=== PATIENT | female | born 1995 | race Caucasian/White ===

== ENCOUNTER 2018-11-09 11:35 | Outpatient (CLI) | payer OTHER ==
[2018-11-09] MEDS ORDERED: TERBUTALINE 1 MG/ML INJ SC PRN (16:00)
[2018-11-09] MEDS ORDERED: LACTATED RINGER'S 1,000 ML IV ONE (16:00)
--- NOTE | 2018-11-20 12:02 | PN ---
Triage Information Date/Time Reason for visit: Abd/pelvic pain Weeks of Gestation 31-week and 1 day /Para G1 Diabetes: none Hypertention: none Objective Heart Rate: 140's Contractions: None Results/Medications Imaging Results FINDINGS: The liver is normal in echogenicity and measures 15.0 cm. No focal hepatic masses are seen. The gallbladder is physiologically distended. There is no ev idence of gallstones, gallbladder wall thickening, or pericholecystic fluid. The intra and extrahepatic bile ducts are normal in caliber. The common bile duct measures 3.5 mm. Midline images demonstrate the pancreas to be normal in echogenicity without obvious inflammatory change. The tail is suboptimally seen. Survey views of the right kidney demonstrate mild hydronephrosis. No obstructing renal calculus is visualized and this is likely secondary to .. The right kidney measures 9.5 cm. IMPRESSION: 1. No evidence of cholelithiasis or acute cholecystitis. 2. Mild right hydronephrosis likely secondary to . No obstructing calculi seen Disposition: Discharge Assessment/Plan 22 years old 1 with single intrauterine at 31 weeks and 1 day complaining of abdominal pain. she states good movement. She denies nausea, vomiting, shortness of breath, chest pain, headache, visual changes, vaginal bleeding or LOF. -FHR: No sign of metabolic acidosis- Category I -Contractions: None -Ultrasound performed: MARGO 16.3, abdominal ultrasound performed as noted above -Symptoms and sign of labor, preeclampsia, kick count discussed with patient, she voiced understanding. All of her questions answered. -Patient was discharged home in stable condition with the appropriate discharge instructions provided. I would like patient to have close follow-up with her primary physician or outpatient clinic in 1-2 days or return to triage for worsening symptoms or any other urgent concerns. KIT PRYOR Nov 20, 2018 12:02
== END 2018-11-09 18:40 | disposition home or self-care (01) ==
LOC: OBT 11:35 → L-D 11:37 → OBT 18:40
PROVIDERS: ATTEND Obstetrics & Gynecology
DX: O26.893 Other specified pregnancy related conditions, third trimester (principal); Z3A.31 31 weeks gestation of pregnancy; R10.2 Pelvic and perineal pain
CPT/HCPCS: 76705; 76815; 76817; 81001; 82731; 87086; 96360; 96372; J3105; J7120; Z7500; G0463

== ENCOUNTER 2018-12-31 08:41 | Outpatient (CLI) | payer OTHER ==
[~2018-12-31] VITALS: Ht 149.9 cm; Wt 63.4 kg
[~2018-12-31 08:41] MED LIST: PNV11TAB PO
[2018-12-31 08:57] VITALS: BP 133/88; Ht 149.9 cm; Wt 63.4 kg
[2018-12-31] MEDS ORDERED: PREN1TAB71 PO (08:57)
--- NOTE | 2018-12-31 12:19 | PN ---
Triage Information Date/Time Reason for visit: Complaining of leaking fluid Weeks of Gestation Patient is a 23-year-old 1 para 0 at 39 weeks and 2 days of gestation with estimated date of delivery January 05, 2019 Patient presents with chief complaint of leaking fluid, she reports positive movement, denies any vaginal bleeding or uterine contractions /Para 1 para 0 Diabetes: none Hypertention: none Objective Vital Signs Date Temp Pulse Resp B/P (MAP) Pulse Ox O2 O2 Flow FiO2 Time Delivery Rate 12/31/18 97.9 133/88 08:57 (103) Heart Rate: 140's Heart Rate Comments heart rate tracing category 1 Contractions: None Exam Cervix closed per nurse Results/Medications Results 24 hrs Laboratory Tests Test 12/31/18 09:00 Membranes Rupture NEGATIVE Imaging Results PROCEDURE: US OB biophysical profile. CLINICAL INDICATION: decreased movements, retractions TECHNIQUE: Multiple sonographic images of the pelvis were obtained. The images were reviewed on a PACS workstation. COMPARISON: No prior studies are available for comparison. FINDINGS: There is a single live intrauterine gestation. Cardiac activity is present with 140 beats per minute. There is a vertex presentation. The placenta is anterior. There is no evidence of placental abruption. MARGO = 11 cm. Biophysical profile: movement 2/2 tone 2/2. breathing 2/2 MARGO 2/2 Total 03/30 RPTAT: AA . IMPRESSION: Normal biophysical profile. . .Koby Wilde MD, MD Date Time Electronically viewed and signed by .Koby Wilde MD, MD on 12/31/2018 09:37 .S/ CC: JOCELYN BETANCUR MD [phone] PROCEDURE: ULTRASOUND OBSTETRICAL CLINICAL INDICATION: 23-year-old female for size and date determination. TECHNIQUE: Multiple sonographic images of the pelvis were obtained. The images were reviewed on a PACS workstation. COMPARISON: Ultrasound biophysical profile currently. FINDINGS: The cervix is not well visualized. There is a single viable intrauterine gestation. Cardiac activity is present with 152 beats per minute. There is a vertex presentation. Measurements were made in order to determine age. The results are as follows: BPD = 8.69 cm, HC = 31.76 cm, AC = 33.57 cm, FL = 7.10 cm. This yields and estimated gestational age of approximately 36 weeks 1 day. The estimated date of delivery is January 27, 2019. The EFW = 3017 +/- 452 g (6 pounds 10 ounces). The GP is 14%. The placenta is anterior grade II. There is no evidence for an abruption or placenta previa. IMPRESSION: 1. Single viable intrauterine gestation of approximately 36 weeks 1 day with vertex presentation. The estimated date of delivery is January 27, 2019. 2. The estimated weight is 3017 +/- 452 g (6 pounds 10 ounces). The GP is 14%. .Nino Brannon MD, MD Date Time Electronically viewed and signed by .Nino Brannon MD, MD on 12/31/2018 10:53 .M/ CC: JOCELYN BETANCUR MD [phone] Disposition: Discharge Assessment/Plan Patient's membranes not ruptured Fetus small for gestational age measuring at 14 percentile Patient counseled to return in 48 hours for repeat NST and BPP kick count instructions were given Labor precautions were given Patient counseled to follow-up with her own MEDIA MANAGER in 1 to 2 days RICA AMAYA MD December 31, 2018 12:19
[2018-12-31] MEDS ORDERED: SOD CHLORIDE 0.9% 1,000 ML IV SCH (13:00)
[2018-12-31] MEDS ORDERED: CEFTRIAXONE 2 GM/50 ML (PMX) 50 ML IVPB ONE (13:00)
--- NOTE | 2018-12-31 14:47 | TRIAGE ---
OB Triage Datetime Report Generated by CPN: 12/31/2018 14:47 Datetime: 12/31/2018 11:01 Stage of : OB Triage Labor Evaluation Frequency: IRREGULAR Monitor Mode: External Duration (sec)2399: 30 Pattern: Normal: <= 5 Contractions in 10 Minutes Resting Tone [place]: Relaxed Heart Rate FHR Baseline Rate: 135 Monitor Mode: External US Variability: Moderate 6-25 bpm Accelerations: 15X15 Decelerations: None Category: Category I Pain Presence: None/Denies Pain Type: N/A Datetime: 12/31/2018 10:01 Stage of : OB Triage Labor Evaluation Frequency: 1 Monitor Mode: External Duration (sec)2399: 60 Pattern: Normal: <= 5 Contractions in 10 Minutes Resting [place]one [place]: Relaxed Heart Rate FHR Baseline Rate: 135 Monitor Mode: External US Variability: Moderate 6-25 bpm Accelerations: 15X15 Decelerations: None Category: Category I Pain Presence: None/Denies Pain Type: N/A Datetime: 12/31/2018 09:30 Stage of : OB Triage Labor Evaluation Frequency: 0 Monitor Mode: External Pattern: Normal: <= 5 Contractions in 10 Minutes Resting [place]one [place]: Relaxed Heart Rate FHR Baseline Rate: 145 Monitor Mode: External US Variability: Moderate 6-25 bpm Accelerations: 15X15 Decelerations: None Category: Category I Comments: BACK ON MONITOR Pain Presence: None/Denies Pain Type: N/A Datetime: 12/31/2018 09:17 Comments: US AT BEDSIDE Datetime: 12/31/2018 09:04 Stage of : OB Triage Assessment Type: Triage Maternal Assessment Level of Consciousness: Fully Conscious DTR's/Clonus: DTRs 2+; No Clonus Headache: Denies Blurred Vision: No Respiratory Effort: Unlabored; Regular Rhythm; Equal Expansion Breath Sounds, Left: Clear and Equal Breath Sounds, Right: Clear and Equal Nausea/Vomiting: Denies RUQ Epigastric Pain: Denies Lower Extremities Edema: None Degree: None Degree: None Facial Edema: None Temperature Route: Oral Fall Risk Assessment History of Falling: (0) No Secondary Diagnosis: (0) No Ambulatory Aid: (0) Bedrest/Nurse Assist IV Therapy: (0) No Gait: (0) Normal/Bedrest/Immobile Mental Status: (0) Oriented to Own Ability Fall Score: 0 Fall Risk Score Definition: No Risk: No action required Monitor Mode: External (Annotations: INITIAL PLACEMENT ) Monitor Mode: External US (Annotations: INITIAL PLACEMENT ) Pain Assessment Pain Scale: 0 Pain Presence: None/Denies Pain Type: N/A Datetime: 12/31/2018 09:01 Time of Arrival: 12/31/2018 08:35 EGA: 38.4 Arrived By: Ambulatory Arrived From: Home Chief Complaint: LEAKING Movement: Present Contractions: Denies/Absent Rupture of Membranes: Denies Vaginal Bleeding: None Vaginal Discharge: Denies Recent Sexual Intercouse: Denies Patient Complaints: Other Time Provider Notified: 12/31/2018 11:43 Provider Notified: DR. AMAYA Initial Plan: EFM CALL MD ROM + Datetime: 12/31/2018 08:50 Vaginal Exam Dilatation (cms): 0.0 Effacement (%): 50 Station: -3 Exam By: Nighat Miranda Datetime: 11/09/2018 17:14 Stage of : OB Triage Labor Evaluation Frequency: 0 Monitor Mode: External Pattern: Normal: <= 5 Contractions in 10 Minutes Resting [place]one [place]: Relaxed Heart Rate FHR Baseline Rate: 155 Monitor Mode: External US Variability: Moderate 6-25 bpm Accelerations: 15X15 Decelerations: None Category: Category I Pain Presence: None/Denies Pain Type: N/A Datetime: 11/09/2018 14:26 Stage of : OB Triage Labor Evaluation Frequency: IRREGULAR Duration (sec)2399: 30 Pattern: Normal: <= 5 Contractions in 10 Minutes Heart Rate FHR Baseline Rate: 145 Monitor Mode: External US Variability: Moderate 6-25 bpm Accelerations: 15X15 Decelerations: None Category: Category I Pain Assessment Pain Scale: 6 Pain Presence: Intermittent Pain Type: Ache Pain Location: Abdomen Pain Goal: 0 Pain Relief Measures: Comfort Measures Datetime: 11/09/2018 12:26 Stage of : OB Triage Labor Evaluation Frequency: x1 Duration (sec)2399: 30 Pattern: Normal: <= 5 Contractions in 10 Minutes Resting [place]one [place]: Relaxed Heart Rate FHR Baseline Rate: 145 Monitor Mode: External US Variability: Moderate 6-25 bpm Accelerations: 15X15 Decelerations: None Category: Category I Datetime: 11/09/2018 12:03 Time of Arrival: 11/09/2018 11:26 EGA: 31.1 Arrived By: Ambulatory Arrived From: Home Chief Complaint: abd pain, radiating to back Movement: Present Contractions: Occasional Rupture of Membranes: Denies Vaginal Bleeding: None Vaginal Discharge: Denies Recent Sexual Intercouse: Denies Abdominal Trauma: Not Applicable Patient Complaints: Other Time Provider Notified: 11/09/2018 18:30 Provider Notified: DR. PRYOR Initial Plan: efm, call md Datetime: 11/09/2018 11:45 Assessment Type: Triage Maternal Assessment Level of Consciousness: Fully Conscious DTR's/Clonus: DTRs 2+; No Clonus Headache: Denies Blurred Vision: No Respiratory Effort: Unlabored; Regular Rhythm; Equal Expansion Breath Sounds, Left: Clear and Equal Breath Sounds, Right: Clear and Equal Nausea/Vomiting: Denies RUQ Epigastric Pain: Denies Lower Extremities Edema: None Degree: None Upper Extremities Edema: None Degree: None Facial Edema: None Fall Risk Assessment History of Falling: (0) No Secondary Diagnosis: (0) No Ambulatory Aid: (0) Bedrest/Nurse Assist IV Therapy: (0) No Gait: (0) Normal/Bedrest/Immobile Mental Status: (0) Oriented to Own Ability Fall Score: 0 Fall Risk Score Definition: No Risk: No action required
== END 2018-12-31 14:50 | disposition home or self-care (01) ==
LOC: OBT 08:41 → L-D 08:42 → OBT 14:50
PROVIDERS: ATTEND Obstetrics & Gynecology
DX: O36.5930 Maternal care for other known or suspected poor fetal growth, third trimester, not applicable or unspecified (principal); Z3A.39 39 weeks gestation of pregnancy
CPT/HCPCS: 76815; 76818; 80053; 81001; 84112; 85025; 87086; 96360; 96361; J0696; J7030; Z7500; G0463

== ENCOUNTER 2019-01-02 11:02 | Inpatient (IN) | payer MEDICAID ==
[~2019-01-02] VITALS: Ht 149.9 cm; Wt 63.3 kg
[~2019-01-02 11:02] MED LIST changes: +PREN1TAB71 PO
[2019-01-02 11:11] VITALS: Ht 149.9 cm; Wt 63.3 kg
--- NOTE | 2019-01-02 13:44 | PREOPHP ---
DATE OF ADMISSION: 01/02/2019 HISTORY OF PRESENT ILLNESS: Ms. Jovana Mills is a 23-year-old, 1, para 0, EDC 9, intrauterine at 39 weeks and 4 days gestational age, presented to triage complaining of contractions with decreased movement. She denies any vaginal bleeding or discharge. Her [facility] care took place with Dr. Velasquez. PAST MEDICAL HISTORY: None. MEDICATIONS: vitamins. PAST SURGICAL HISTORY: None. OBSTETRIC HISTORY: Primigravida. GYNECOLOGIC HISTORY: 10, regular 3 to 4 days. Denies any sexually transmitted diseases, sexually ac tive with 1 partner. SOCIAL HISTORY: Denies any smoking, drugs or alcohol. FAMILY HISTORY: None. REVIEW OF SYSTEMS: All within normal except history of present illness. PHYSICAL EXAMINATION: HEENT: Within normal. LUNGS: CTA bilateral. CARDIOVASCULAR: S1, S2, regular rhythm. ABDOMEN: Gravid, nontender. Negative CVA bilateral. EXTREMITIES: Negative. No calf tenderness. PELVIC: Vaginal exam 1, 50, -3. heart tracing category 1. [place]: Regular contractions. ASSESSMENT: Intrauterine at term, in early labor, decreased movement and admit. PLAN: Pitocin augmentation. Dictated By: JOCELYN HAWTHORNE/SHALOM Conf#: [id number] DID#: [id number]
[2019-01-02 14:32] VITALS: BP 132/89; PULSE 95; RESP 18
[2019-01-02] MEDS ORDERED: AMPICILLIN 2 GM/NS (PMX) 100 ML IV ONE (15:30)
[2019-01-02] MEDS ORDERED: METHYLERGONOVINE 0.2 MG INJ IM PRN (15:30)
[2019-01-02] MEDS ORDERED: CARBOPROST 250 MCG INJ IM PRN (15:30)
[2019-01-02] MEDS ORDERED: LIDOCAINE 1% (MPF) 30 ML INJ INJ PRN (15:30)
[2019-01-02] MEDS ORDERED: OXYTOCIN 30 UNITS/LR 500 ML IV PRN (15:30)
[2019-01-02] MEDS ORDERED: BUTORPHANOL 2 MG INJ IV PRN (15:30)
[2019-01-02] MEDS ORDERED: MISOPROSTOL 200 MCG TAB PR PRN (15:30)
[2019-01-02] MEDS ORDERED: OXYTOCIN 30 UNITS/LR 500 ML IV SCH ×2 (15:30)
[2019-01-02] MEDS: LACTATED RINGER'S 1,000 ML IV SCH ×2 (15:49→19:15)
[2019-01-02] MEDS: OXYTOCIN 30 UNITS/LR 500 ML IV SCH (16:15)
[2019-01-02] MEDS ORDERED: AMPICILLIN 1 GM/NS (PMX) 50 ML IV SCH (18:00)
[2019-01-02] MEDS ORDERED: PREN-99 PO (21:25)
[2019-01-02] MEDS ORDERED: FER325 PO (21:25)
[2019-01-02] MEDS: DEXTROSE 5%-LR 1,000 ML IV SCH (21:59)
[2019-01-03] MEDS ORDERED: MINERAL OIL LIGHT 10 ML VIAL TOP ONE (06:00)
[2019-01-03] MEDS: DEXTROSE 5%-LR 1,000 ML IV SCH ×3 (06:23→22:00)
[2019-01-03] MEDS ORDERED: MISOPROSTOL 50 MCG CAPSULE PO ONE (12:00)
[2019-01-03] MEDS: OXYTOCIN 30 UNITS/LR 500 ML IV SCH (17:50)
--- NOTE | 2019-01-03 18:22 | QN ---
Documentation Comment progress note labor and delivery patient seen and evaluated no complaints vs stable afebrile ab gravid nt extremity no edema no calf tenderness ve 2/80/-2 arom clear fhr cat 1 toco irregular a/ iup at 39 wks ga, admitted for delivery secondary to decrease movement p/ start pitocin r/b/a explained JOCELYN BETANCUR MD January 03, 2019 18:22
[2019-01-03] MEDS ORDERED: LACTATED RINGER'S 1,000 ML IV PRN (22:49)
--- NOTE | 2019-01-03 23:57 | PREAC ---
Date/Time of Note Date/Time of Note DATE: 01/03/19 TIME: 23:56 Anesthesia Eval and Record Evaluation Time Pre-Procedure Interview DATE: 01/03/19 TIME: 23:56 Age 23 Sex female NPO: 8 hrs Preoperative diagnosis labor pain Planned procedure epidural Past Medical History Past Medical History: None Surgery & Anesthesia Issues No known issue Meds Anticoagulation: No Beta Gypsy within 24 hr: No Reason Beta Gypsy not given: Pt. not on B-Gypsy Reported Medications Ferrous Sulfate* (Ferrous Sulfate*) 325 Mg Tabec, 325 MG PO DAILY, TAB 01/02/19 Vit #76/Iron,Carb/FA (Pnv 29-1 Tablet) 1 Each Tablet, 1 EACH PO, TAB 01/02/19 Vit No.130/Iron/FA ( Tablet) 1 Each Tablet, 1 EACH PO 12/31/18 Discontinued Reported Medications [id number] ( ) 1 Each Tablet, 1 TAB PO DAILY, TAB 10/14/18 Current Medications Butorphanol Tartrate (Stadol) 2 mg Q2H PRN IV .PAIN SCALE 6-10; Start 01/02/19 at 15:30 Lidocaine (Xylocaine 1% (Mpf)) 30 ml ONCE PRN INJ .EPISIOTOMY; Start 01/02/19 at 15:30 Oxytocin/Lactated Ringer's 500 ml @ 500 mls/hr ONCE POST IV ; Start 01/02/19 at 15:30 Oxytocin/Lactated Ringer's 500 ml @ 125 mls/hr POST IV ; Start 01/02/19 at 15:30 Oxytocin/Lactated Ringer's 500 ml @ 0 mls/hr ONCE PRN IV .VAGINAL BLEEDING; Start 01/02/19 at 15:30 Methylergonovine Maleate (Methergine) 0.2 mg ONCE PRN IM .VAGINAL BLEEDING; Start 01/02/19 at 15:30 Carboprost Tromethamine (Hemabate) 250 mcg ONCE PRN IM .VAGINAL BLEEDING; Start 01/02/19 at 15:30 Misoprostol (Cytotec) 1,000 mcg ONCE PRN SC .VAGINAL BLEEDING; Start 01/02/19 at 15:30 Oxytocin/Lactated Ringer's 500 ml @ 0 mls/hr FOR AUGMENTATION IV Last administered on 01/03/19at 17:50; Admin Dose 1 MLS/HR; Start 01/02/19 at 15:30 Dextrose/Lactated Ringer's 1,000 ml @ 125 mls/hr Q8H IV Last administered on 01/03/19at 15:29; Admin Dose 125 MLS/HR; Start 01/02/19 at 22:00 Lactated Ringer's 1,000 ml @ 125 mls/hr Q8H IV ; Start 01/03/19 at 22:49 Lactated Ringer's 1,000 ml @ 2,000 mls/hr Q30M PRN IV .ANESTHESIA; Start 01/03/19 at 22:49 Meds reviewed: Yes Allergies Coded Allergies: morphine (Verified Allergy, Severe, 01/03/19) PT STATES SHE FELT SHORT OF BREATH AND THROAT TIGHTENING. Allergies Reviewed: Yes Labs/Studies Labs Reviewed: Reviewed by anesthesiologist Result Diagram: 01/02/19 1540 test: Positive Studies: ECG (n/a), CXR (n/a) Pre-procedure Exam Last vitals Vital Signs Date Temp Pulse Resp B/P (MAP) Pulse Ox O2 O2 Flow FiO2 Time Delivery Rate 01/02/19 98.1 95 18 132/89 100 Room Air 14:32 (103) Airway: Adequate mouth opening Mallampati: Mallampati I Teeth: Normal Lung: Normal Heart: Normal ASA Physical Status ASA physical status: 2 Emergency: None Planned Anesthetic Neuraxial: Epidural Planned Pain Management Epidural Pre-operative Attestations Prior to commencing anesthesia and surgery, the patient was re-evaluated, there was verification of: *The patient's identity *The results of appropriate recent lab work and preoperative vital signs *The above evaluation not changing prior to induction *Anesthetic plan, risk benefits, alternative and complications discussed with patient/family; questions answered; patient/family understands, accepts and wishes to proceed. DIANA RENTERIA MD January 03, 2019 23:57
[2019-01-04] MEDS ORDERED: ONDANSETRON 4 MG INJ IV PRN ×2 (00:30→09:00)
[2019-01-04] MEDS ORDERED: DIPHENHYDRAMINE 50 MG INJ IV PRN (00:30)
[2019-01-04] MEDS ORDERED: FENTAnyl 2MCG/ML-ROPIV 0.2% 100 ML BAG EPI SCH (00:30)
[2019-01-04] MEDS ORDERED: NALOXONE (0.4 MG/ML) INJ IV PRN (00:30)
[2019-01-04] MEDS ORDERED: FENTAnyl 2MCG/ML-ROPIV 0.2% 100 ML ONE (01:15)
[2019-01-04] MEDS: LACTATED RINGER'S 1,000 ML IV SCH ×2 (02:17→06:57)
[2019-01-04] MEDS: DEXTROSE 5%-LR 1,000 ML IV SCH (06:00)
--- NOTE | 2019-01-04 08:05 | PAC ---
Date/Time of Note Date/Time of Note DATE: 01/04/19 TIME: 08:05 Post-Anesthesia Notes Post-Anesthesia Note Last documented vital signs Vital Signs Date Temp Pulse Resp B/P (MAP) Pulse Ox O2 O2 Flow FiO2 Time Delivery Rate 01/02/19 98.1 95 18 132/89 100 Room Air 14:32 (103) Activity: WNL Respiratory function: WNL Cardiovascular function: WNL Mental status: Baseline Pain reasonably controlled: Yes Hydration appropriate: Yes Nausea/Vomiting absent: No DIANA RENTERIA MD January 04, 2019 08:05
--- NOTE | 2019-01-04 08:55 | LDN ---
Date/Time of Note Date/Time of Note DATE: 01/04/19 TIME: 08:55 Delivery Summary Weeks of Gestation 39 Placenta Delivered: Spontaneously Meconium: none Episiotomy: Yes Laceration repair: rmle repair with 2-0 and 3-0 chromic Anesthesia type: Epidural Estimated blood loss: 300 Sponge & Needle done & correct: Yes All needle counts correct: Yes Any foreign bodies felt in the: No Delivery Information Sex Sex: female Apgars 1 Minute: 8 5 Minute: 9 Suctioning Nose & mouth suctioned at gisselle: No Delee suction performed: No Umbilical Cord Umbilical cord with: 3 Vessels Cord presentations: nuchal cord Nuchal cord present X: 1 Cord Blood was obtained: Yes JOCELYN BETANCUR MD January 04, 2019 08:55
[2019-01-04] MEDS: OXYTOCIN 30 UNITS/LR 500 ML IV SCH ×2 (08:56→13:02)
[2019-01-04] MEDS ORDERED: CARBOPROST 250 MCG INJ IM PRN (09:00)
[2019-01-04] MEDS ORDERED: OXYTOCIN 30 UNITS/LR 500 ML IV PRN (09:00)
[2019-01-04] MEDS ORDERED: ACETAMINOPHEN 325 MG TAB PO PRN (09:00)
[2019-01-04] MEDS ORDERED: WITCH HAZEL/GLYCERIN PAD PR PRN (09:00)
[2019-01-04] MEDS ORDERED: BENZOCAINE 20% 56 ML SPRAY TOP PRN (09:00)
[2019-01-04] MEDS: SENNA/DOCUSATE NA (8.6MG/50MG) TAB PO SCH ×2 (09:00→21:30)
[2019-01-04] MEDS ORDERED: METHYLERGONOVINE 0.2 MG INJ IM PRN (09:00)
[2019-01-04] MEDS ORDERED: NACL 0.9% 3 ML SYG IV SCH (09:00)
[2019-01-04] MEDS ORDERED: DIPHENHYDRAMINE 25 MG CAP PO PRN (09:00)
[2019-01-04] MEDS ORDERED: SENNA/DOCUSATE NA (8.6MG/50MG) TAB PO PRN (09:00)
[2019-01-04] MEDS ORDERED: MISOPROSTOL 200 MCG TAB PR PRN (09:00)
[2019-01-04] MEDS: IBUPROFEN 600 MG TAB PO SCH ×2 (12:00→17:52)
[2019-01-04 14:00] VITALS: BP 122/92; PULSE 80; RESP 17
[2019-01-04 16:12] VITALS: BP 142/93; PULSE 80; RESP 16
[2019-01-04] MEDS: LANOLIN HPA 1 PKT TOP PRN (17:52)
[2019-01-04 19:35] VITALS: BP 130/84; PULSE 82; RESP 18
[2019-01-05] VITALS: BP 105/66; PULSE 80; RESP 18
[2019-01-05] MEDS: IBUPROFEN 600 MG TAB PO SCH ×5 (00:20→23:37)
[2019-01-05] MEDS: LANOLIN HPA 1 PKT TOP PRN (07:02)
[2019-01-05 07:40] VITALS: BP 98/64; PULSE 78; RESP 16
[2019-01-05] MEDS: SENNA/DOCUSATE NA (8.6MG/50MG) TAB PO SCH ×2 (08:56→21:10)
[2019-01-05 16:22] VITALS: BP 125/86; PULSE 77; RESP 16
--- NOTE | 2019-01-05 17:09 | PD.PPDC ---
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
--- NOTE | 2019-01-05 17:10 | DS ---
Date/Time of Note Date/Time of Note DATE: 01/05/19 TIME: 17:10 Obstetrical Discharge Record Final Diagnosis Final Diagnosis: Term delivered Vaginal Delivery Obstetrical Delivery: Spontaneous, Episiotomy, Repaired Condition on Discharge Physical Assessment Voiding: Yes Bowel Movement: Yes Breast: Soft, non-tender, Filling Fundus: Firm Abdomen and Incision: soft, nt Calf Tenderness: No Patient Condition: Fair JOCELYN BETANCUR MD January 05, 2019 17:10
[2019-01-05 19:45] VITALS: BP 117/72; PULSE 66; RESP 18
[2019-01-05] MEDS: FERROUS SULFATE (EC) 325 MG TAB PO SCH (21:10)
[2019-01-06 03:51] VITALS: BP 117/73; PULSE 66; RESP 18
[2019-01-06] MEDS: IBUPROFEN 600 MG TAB PO SCH ×2 (05:52→11:53)
[2019-01-06 08:15] VITALS: BP 108/68; PULSE 80; RESP 19
[2019-01-06] MEDS: FERROUS SULFATE (EC) 325 MG TAB PO SCH (08:21)
[2019-01-06] MEDS: SENNA/DOCUSATE NA (8.6MG/50MG) TAB PO SCH (08:22)
[2019-01-06] MEDS ORDERED: MEASLES,MUMPS,RUBELLA VACCINE INJ SC* ONE (09:00)
[2019-01-06] MEDS: LANOLIN HPA 1 PKT TOP PRN (09:29)
--- NOTE | 2019-01-07 18:12 | DELSUM ---
Delivery Summary A-C Datetime Report Generated by N: 01/07/2019 18:12 DELIVERY PERSONNEL Head Athletic Trainer: Soleimaelaine, Thao MATERNAL INFORMATION Delivery Anesthesia: Epidural Medications in Delivery: 30 units Pitocin, metheragine 0.2mg Delivery QBL (ml): 300 Placenta Cultured: No Maternal Complications: None LABOR SUMMARY EDC: 01/05/2019 00:00 No. Babies in Womb: 1 Attempted: No Labor Anesthesia: Epidural LABOR INFORMATION Reason for Induction: Not Applicable Onset of Labor: 01/02/2019 17:00 Complete Dilatation: 01/04/2019 08:20 Cervical Ripening Agents: Cytotec @ Oxytocin: Augmentation (Annotations: Data stored by [facility] on behalf of user) Group B Beta Strep: Negative Antibiotics # of Doses: 0 Steroids Given: None Reason Steroids Not Administered: Not Applicable MEMBRANES Membranes Rupture Method: Spontaneous Rupture of Membranes: 01/04/2019 17:15 Length of Rupture (hr): 15.10 Amniotic Fluid Color: Clear Amniotic Fluid Amount: Moderate Amniotic Fluid Odor: None STAGES OF LABOR Stage 1 hr: 39 Stage 1 min: 20 Stage 2 hr: 0 Stage 2 min: 17 Stage 3 hr: 0 Stage 3 min: 4 Total Time in Labor hr: 39 Total Time in Labor min: 41 VAGINAL DELIVERY Episiotomy: Right Mediolateral Initial Vag Sponge Count: 10 Final Vag Sponge Count: 10 Initial Vag Sharps Count: 4 Final Vag Sharps Count: 4 Sponge Count Correct: Yes Sharps Count Correct: Yes BABY A INFORMATION Infant Delivery Date/Time: 01/04/2019 08:37 Method of Delivery: Vaginal Born in Route : No : N/A Forceps: N/A Vacuum Extraction: N/A Shoulder Dystocia : N/A SHOULDER DYSTOCIA BABY A Infant Delivery Date/Time: 01/04/2019 08:37 PRESENTATION/POSITION BABY A Presentation: Cephalic Cephalic Presentation: Vertex Vertex Position: Left Occipital Posterior Breech Presentation: N/A PLACENTA INFORMATION BABY A Placenta Delivery Time : 01/04/2019 08:41 Placenta Method of Delivery: Spontaneous Placenta Status: Delivered SCORES BABY A Heart Rate 1 min: >100 bpm Resp Effort 1 min: Good Cry Reflex Irritability 1 min: Cough/Sneeze/Pulls Away Muscle Tone 1 min: Active Motion Color 1 min: Blue/Pale Resuscitation Effort 1 min: Tactile Stimulation; Oxygen; PPV/NCPAP SCORE 1 MIN: 8 Heart Rate 5 min: >100 bpm Resp Effort 5 min: Good Cry Reflex Irritability 5 min: Cough/Sneeze/Pulls Away Muscle Tone 5 min: Active Motion Color 5 min: Body [place], Extremit Blue Resuscitation Effort 5 min: Tactile Stimulation SCORE 5 MIN: 9 INFANT INFORMATION BABY A Gestational Age at Delivery: 39.0 Gestational Status: Full Term- 39- 40.6 Weeks Outcome : Liveborn Condition : Stable Infant Sex: Female IDENTIFICATION/MEDS BABY A ID Band Number: [id number] ID Band Location: Right Leg; Left Arm Sensor Applied: Yes Sensor Number: [id number] Sensor Location : Cord Clamp Vitamin K Given : Not Given Erythromycin Given: Not Given WEIGHT/LENGTH BABY A Infant Birthweight (gm): 3105 Weight (lb): 6 Weight (oz): 14 Length (in): 18.50 Infant Length (cm): 46.99 CORD INFORMATION BABY A No. Cord Vessels: 3 Nuchal Cord : Around Neck x1, Tight Cord Blood Taken: Yes Suction: Mouth; Nose ASSESSMENT BABY A Bottom Turning Lathe Turner/ALS Called : No Transferred To: Remains with Mother
== END 2019-01-06 18:12 | disposition home or self-care (01) | DRG 807 ==
LOC: L-D 11:02 → OBT 11:02 → MERGE 13:35 → L-D 13:35 → OBT 13:35 → L-D 14:34 → PP1 01-04 13:42
PROVIDERS: ADMIT Obstetrics & Gynecology; ATTEND Obstetrics & Gynecology
PROC: 10E0XZZ Delivery of Products of Conception, External Approach (ICD-10-PCS; principal; 2019-01-04)
PROC: 0W8NXZZ Division of Female Perineum, External Approach (ICD-10-PCS; 2019-01-04)
DX: O36.8130 Decreased fetal movements, third trimester, not applicable or unspecified (principal); Z37.0 Single live birth; O69.81X0 Labor and delivery complicated by cord around neck, without compression, not applicable or unspecified; Z3A.39 39 weeks gestation of pregnancy
CPT/HCPCS: 62322; 76818; 82962; 85025; 85610; 85730; 86592; 86850; 86900; 86901; 99464; G0463; J2590; J3010; J7120; J7121

== ENCOUNTER 2019-01-11 18:41 | Inpatient (IN) | payer MEDICAID ==
[~2019-01-11] VITALS: Ht 144.8 cm; Wt 57.0 kg
[~2019-01-11 18:41] MED LIST changes: +FER325 PO; -PNV11TAB PO; +PREN-99 PO
[2019-01-11 19:03] VITALS: Ht 144.8 cm; Wt 57.0 kg
[2019-01-11] MEDS ORDERED: ONDANSETRON 4 MG INJ IV STA (21:17)
[2019-01-11] MEDS ORDERED: LABETALOL HCL 20MG INJ IV ONE (22:30)
--- NOTE | 2019-01-11 22:41 | ERD ---
ER Documentation Chief Complaint Chief Complaint s/p with hagen/nausea & htn on home testing HPI This is a 23-year-old female patient presents emergency room with complaint of tightness in chest, dizziness, headache x 3 days. States she took her blood pressure 3 days ago and it was elevated approximately SBP 150, she thought she would feel better and blood pressure has remained elevated over the last 3 days. She called her OB Dread Debbi ([phone]) who told her to come to the emergency room. +nausea, no vomiting, diffuse HAGEN. Patient denies prior history of hypertension or eclampsia during . Patient alert, clear speech, steady gait, NAD at time of evaluation. , vaginal delivery @ 39 weeks ROS All systems reviewed and are negative except as per history of present illness. Medications Home Meds Reported Medications Ferrous Sulfate* (Ferrous Sulfate*) 325 Mg Tabec, 325 MG PO DAILY, TAB 01/02/19 Vit #76/Iron,Carb/FA (Pnv 29-1 Tablet) 1 Each Tablet, 1 EACH PO, TAB 01/02/19 Vit No.130/Iron/FA ( Tablet) 1 Each Tablet, 1 EACH PO 12/31/18 Allergies Allergies: Coded Allergies: morphine (Verified Allergy, Severe, 01/04/19) PT STATES SHE FELT SHORT OF BREATH AND THROAT TIGHTENING. PMhx/Soc Medical and Surgical Hx: pt denies Medical Hx, pt denies Surgical Hx Hx Alcohol Use: No Hx Substance Use: No Hx Tobacco Use: No FmHx Family History: No diabetes, No coronary disease, No other Physical Exam Vitals Vital Signs Date Temp Pulse Resp B/P (MAP) Pulse Ox O2 O2 Flow FiO2 Time Delivery Rate 01/11/19 75 18 177/110 100 Room Air 22:21 (132) 01/11/19 98.5 70 20 160/101 100 Room Air 21:08 (120) 01/11/19 98.9 84 18 155/105 100 19:03 (122) Physical Exam Const: No acute distress Head: Atraumatic Eyes: Normal Conjunctiva, PERRL, EOMI ENT: Normal External Ears, Nose and Mouth. Pharynx pink, moist, no lesions, no exudate, no petechiae Neck: Full range of motion. No meningismus. No lymphadenopathy, no thyromegaly. Resp: Clear to auscultation bilaterally Cardio: Regular rate and rhythm, no murmurs. Nonpitting edema to BLLE. Abd: Soft, non tender, non distended. Normal bowel sounds. No hepatosplenomegaly Skin: No petechiae or rashes Back: No midline or flank tenderness Neur: Awake and alert, equal smile, steady gait, clear speech, +2patellar reflexes, CNII-XII intact Psych: Normal Mood and Affect Results 24 hrs Laboratory Tests Test 01/11/19 22:09 White Blood Count Pending Red Blood Count Pending Hemoglobin Pending Hematocrit Pending Mean Corpuscular Volume Pending Mean Corpuscular Hemoglobin Pending Mean Corpuscular Hemoglobin Concent Pending Red Cell Distribution Width Pending Platelet Count Pending Mean Platelet Volume Pending Current Medications Medications Dose Sig/Trung Start Time Status Last (Trade) Ordered Route PRN Stop Time Admin Dose Reason Admin Ondansetron 4 mg ONCE STAT 01/11/19 DC 01/11/19 HCl (Zofran IV 21:17 22:20 Inj) 01/11/19 21:26 Labetalol 20 mg ONCE ONCE 01/11/19 DC 01/11/19 HCl IV 22:30 22:20 (Labetalol) 01/11/19 22:31 Procedures/MDM Due to need for monitoring patient moved to [place] ER, signed out to Dr. Schaefer. EKG: Rate/Rhythm: 68 BPMNormal Sinus Rhythm QRS, ST, T-waves: No changes consistent w/ acute ischemia Impression: No evidence of ischemia or arrhythmia MARINA WORKMAN NP January 11, 2019 22:41
[2019-01-11] MEDS ORDERED: MAGNESIUM SULFATE 4 GM/100 ML 100 ML IVPB ONE (23:00)
[2019-01-12] VITALS (10 sets, daily range): BP systolic 112–136; BP diastolic 71–95; PULSE 73–116; RESP 17–20
[2019-01-12] MEDS ORDERED: LABETALOL 200 MG TAB PO ONE (01:00)
[2019-01-12] MEDS ORDERED: LABETALOL HCL 20MG INJ IV ONE (01:00)
[2019-01-12] MEDS ORDERED: NACL 0.9% 3 ML SYG IV SCH (01:00)
[2019-01-12] MEDS ORDERED: CA GLUCONATE (GM) 10% 10ML INJ IV PRN (01:00)
[2019-01-12] MEDS ORDERED: MAGNESIUM SULFATE 4 GM/100 ML 100 ML IV SCH (01:00)
[2019-01-12] MEDS: MAGNESIUM SULFATE 20 GM/500 ML 500 ML IV SCH ×3 (02:30→17:09)
[2019-01-12] MEDS: LACTATED RINGER'S 1,000 ML IV SCH ×2 (03:00→14:53)
--- NOTE | 2019-01-12 08:33 | QN ---
Documentation Comment progress note patient seen and evaluated no complaints no headache, n/v, sob, visual changes, epigastric pain vs stable afebrile ab soft nt, no distention extremity no edema no calf tenderness a/ sp vaginal delivery last week with preeclampsia pt currently on mg for seizure prophylaxis p/ continue present management JOCELYN BETANCUR MD January 12, 2019 08:33
--- NOTE | 2019-01-12 09:01 | CONS ---
Assessment/Plan Assessment/Plan Hospital Course (Demo Recall) Post a week ago Elevated blood pressure in severe range with headache Symptoms consistent with preeclampsia Blood pressure currently stabilized by 1 dose of 20 mg IV labetalol. Patient currently asymptomatic. She has been started on magnesium by ED attending. Request [facility] [place] labs. Patient will be admitted to service for evaluation, management of hypertension Continue magnesium per protocol 2 g/h after loading dose of 4 g Strict intake and output Patient will be started on labetalol 200 mg p.o. twice daily Primary OB attending aware and will follow up Plan of care discussed with the patient and with the ED attending. Consultation Date/Type/Reason Admit Date/Time Jan 11 2019 Late entry note. This is an H&P Date of Consultation: January 11, 2019 Type of Consult Obstetric consultation Reason for Consultation Elevated blood pressure in the severe range, Date/Time of Note DATE: 01/12/19 TIME: 08:54 Hx of Present Illness 23-year-old G1, P1 female status post a week ago at this facility presented with complaint of headache and recent episode of swelling of bilateral lower extremity. Patient reports symptoms are started since 2 days ago. She denies any blurred vision, epigastric pain or right upper quadrant pain. She denies any history of hypertension during . Denies any complications during . She was noted to have elevated blood pressure in the range of 170s over 100s when she arrived in the emergency room. She was seen by ED attending and was given a dose of 20 mg IV labetalol and started on magnesium due to concern for preeclampsia. I was called For evaluation. Attended to the patient bedside.Patient reports her headache improved. Currently denies any complaint. Is pumping her breast. Reports lochia in the month of menses. Subjective hx not possible: other Constitutional: no complaints, improved Eyes: no complaints ENT: no complaints Respiratory: no complaints Cardiovascular: no complaints Gastrointestinal: no complaints Genitourinary: bleeding (Reports normal lochia in the month of menses.) Musculoskeletal: no complaints Skin: no complaints Neurologic: other (Reports had a headache when she arrived to emergency room and currently resolved.) Lymphatic: no complaints Psychological: no complaints Immunologic: no complaints Past Medical History Medical History: no pertinent history Home Meds Reported Medications Ferrous Sulfate* (Ferrous Sulfate*) 325 Mg Tabec, 325 MG PO DAILY, TAB 01/02/19 Vit #76/Iron,Carb/FA (Pnv 29-1 Tablet) 1 Each Tablet, 1 EACH PO, TAB 01/02/19 Vit No.130/Iron/FA ( Tablet) 1 Each Tablet, 1 EACH PO 12/31/18 Medications Current Medications IV Flush (NS 3 ml) 3 ml PER PROTOCOL IV ; Start 01/12/19 at 01:00 Magnesium Sulfate 500 ml @ 50 mls/hr Q10H IV Last administered on 01/12/19at 02:54; Admin Dose 50 MLS/HR; Start 01/12/19 at 01:30 Calcium Gluconate (Ca Gluc) 1 gm ONCE PRN IV FOR MAGNESIUM TOXICITY; Start 01/12/19 at 01:00 Lactated Ringer's 1,000 ml @ 75 mls/hr [id number] IV Last administered on 01/12/19at 03:00; Admin Dose 75 MLS/HR; Start 01/12/19 at 03:00 Allergies: Coded Allergies: morphine (Verified Allergy, Severe, 01/04/19) PT STATES SHE FELT SHORT OF BREATH AND THROAT TIGHTENING. Past Surgical History Past Surgical Hx: no surgical history Family History Significant Family History: no pertinent family hx Social History Alcohol Use: none Smoking Status: Never smoker Drug Use: none Exam/Review of Systems Exam Vitals Vital Signs Date Temp Pulse Resp B/P (MAP) Pulse Ox O2 O2 Flow FiO2 Time Delivery Rate 01/12/19 97.7 116 18 112/78 Room Air 08:33 (89) 116 01/12/19 100 01:31 Intake and Output 01/11/19 01/11/19 01/12/19 1515:00 23:00 07:00 IntakeIntake Total 500 ml OutputOutput Total 800 ml BalanceBalance -300 ml Constitutional: alert, oriented, well developed Psych: no complaints, nl mood/affect Head: normocephalic, atraumatic Eyes: nl conjunctiva, EOMI ENMT: nl external ears & nose, nl lips & teeth Neck: supple Respiratory: clear to auscultation, normal air movement Cardiovascular: regular rate and rhythm, nl pulses Gastrointestinal: soft, nl liver, spleen, non-tender, other (Uterus palpable at the level of umbilicus and firm consistent with status And nontender.) Genitourinary - Female: other (Pelvic exam deferred) Musculoskeletal: nl extremities to inspection, nl gait and stance Extremities: normal pulses Neurological: J[employer] 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 intact, nl mental status, nl speech Skin: nl turgor, rash or lesions Results Result Diagram: 01/11/19220801/12/19 0001 Results 24hrs Laboratory Tests Test 01/11/19 22:09 01/12/19 00:01 01/12/19 06:19 White Blood Count 11.6 H Red Blood Count 3.27 #L Hemoglobin 10.1 #L Hematocrit 31.6 #L Mean Corpuscular Volume 96.6 Mean Corpuscular Hemoglobin 30.9 Mean Corpuscular Hemoglobin Concent 32.0 Red Cell Distribution Width 14.6 H Platelet Count 695 #H Mean Platelet Volume 9.6 Immature Granulocytes % 0.500 H Neutrophils % 67.1 Lymphocytes % 24.3 Monocytes % 6.0 Eosinophils % 1.7 Basophils % 0.4 Nucleated Red Blood Cells % 0.0 Immature Granulocytes # 0.060 H Neutrophils # 7.7 H Lymphocytes # 2.8 Monocytes # 0.7 Eosinophils # 0.2 Basophils # 0.1 Nucleated Red Blood Cells # 0.0 Prothrombin Time 12.5 Prothrombin Time Ratio 1.0 INR International Normalized Ratio 0.92 Activated Partial Thromboplast Time 37.4 H Urine Color STRAW Urine Clarity CLEAR Urine pH 7.0 Urine Specific [place] 1.008 Urine Ketones NEGATIVE Urine Nitrite NEGATIVE Urine Bilirubin NEGATIVE Urine Urobilinogen NEGATIVE Urine Leukocyte Esterase 1+ H Urine Microscopic RBC 1 Urine Microscopic WBC 17 H Urine Hemoglobin 3+ H Urine Glucose NEGATIVE Urine Total Protein NEGATIVE Sodium Level 143 145 H Potassium Level 4.0 4.5 Chloride Level 110 112 H Carbon Dioxide Level 24 25 Anion Gap 9 8 Blood Urea Nitrogen 9 9 Creatinine 0.51 0.47 Est Glomerular Filtrat Rate mL/min > 60 Glucose Level 91 90 Uric Acid 5.3 Calcium Level 9.0 9.1 Total Bilirubin 0.5 0.4 Direct Bilirubin 0.00 0.00 Indirect Bilirubin 0.5 0.4 Aspartate Amino Transf (AST/SGOT) 21 23 Alanine Aminotransferase (ALT/SGPT) 18 27 Alkaline Phosphatase 220 H 210 H Total Protein 7.8 7.3 Albumin 3.9 3.7 Globulin 3.90 H Albumin/Globulin Ratio 1.00 Lipase 63 Fibrinogen 455.0 Phosphorus Level 4.6 Lactate Dehydrogenase 625 H Magnesium Level 6.0 *H Medications Medication Current Medications IV Flush (NS 3 ml) 3 ml PER PROTOCOL IV ; Start 01/12/19 at 01:00 Magnesium Sulfate 500 ml @ 50 mls/hr Q10H IV Last administered on 01/12/19at 02:54; Admin Dose 50 MLS/HR; Start 01/12/19 at 01:30 Calcium Gluconate (Ca Gluc) 1 gm ONCE PRN IV FOR MAGNESIUM TOXICITY; Start 01/12/19 at 01:00 Lactated Ringer's 1,000 ml @ 75 mls/hr [id number] IV Last administered on 01/12/19at 03:00; Admin Dose 75 MLS/HR; Start 01/12/19 at 03:00 KATHIE WILLIS MD January 12, 2019 09:01
[2019-01-12] MEDS: LABETALOL 200 MG TAB PO SCH (16:19)
[2019-01-13] VITALS (13 sets, daily range): BP systolic 110–154; BP diastolic 67–96; PULSE 64–82; RESP 16–20
[2019-01-13] MEDS: LACTATED RINGER'S 1,000 ML IV SCH (01:46)
[2019-01-13] MEDS: LABETALOL 200 MG TAB PO SCH ×3 (04:20→21:05)
[2019-01-13] MEDS ORDERED: ACETAMINOPHEN 325 MG TAB PO PRN (10:30)
--- NOTE | 2019-01-13 19:02 | QN ---
Documentation Comment patient seen and evaluated aao x 3 no complaints no headache, n/v, sob, visual changes, epigastric pain vs bp 154/93 ab soft nt no epigastric tenderness extremity no edema no calf tenderness a/ sp vaginal delivery return to hospital with preeclampsia, currently stable p/ continue to monitor patient closely consider discharge home if stable tomorrow JOCELYN BETANCUR MD January 13, 2019 19:02
[2019-01-14 00:10] VITALS: BP 125/71; PULSE 68; RESP 17
[2019-01-14 04:15] VITALS: BP 130/92; PULSE 62
[2019-01-14 08:00] VITALS: BP 144/95; PULSE 62; RESP 18
[2019-01-14] MEDS: LABETALOL 200 MG TAB PO SCH ×2 (09:07→21:24)
--- NOTE | 2019-01-14 10:46 | QN ---
Documentation Comment patient seen and evaluated aao x 3 no complaints no headache, n/v, sob, visual changes, epigastric pain vs bp 130/92 ab soft nt no epigastric tenderness extremity no edema no calf tenderness a/ sp vaginal delivery return to hospital with preeclampsia, thrombocytosis currently stable p/ continue to monitor patient closely medicine consult JOCELYN BETANCUR MD January 14, 2019 10:46
[2019-01-14 16:00] VITALS: BP 132/90; PULSE 67; RESP 18
[2019-01-14 19:45] VITALS: BP 149/91; PULSE 73; RESP 16
[2019-01-14] MEDS ORDERED: MAGNESIUM HYDROXIDE 30ML CUP PO PRN (23:00)
[2019-01-15 04:00] VITALS: BP 105/59; PULSE 70; RESP 17
[2019-01-15 08:30] VITALS: BP 120/76; PULSE 63; RESP 18
[2019-01-15] MEDS: LABETALOL 200 MG TAB PO SCH (09:27)
[2019-01-15 12:41] VITALS: BP 117/69; PULSE 79; RESP 18
--- NOTE | 2019-01-15 13:07 | DS ---
Date/Time of Note Date/Time of Note DATE: 01/15/19 TIME: 13:02 Discharge Summary Admission/Discharge Info Admit Date/Time January 12, 2019 at 00:48 Discharge Date/Time January 15, 2019 Discharge Diagnosis pre-eclampsia. Thrombocytosis. Patient Condition: Good Procedures Medical management of blood pressures. Hx of Present Illness Came in one week after delivery and found to have very elevated BP's. Hospital Course Pt was placed on 24 hours of magnesium sulfate upon admission and started on Labetalol 200 BID. Her blood pressure responded and today is 117/69. The pt feels well.Pt was noted to have thrombocytosis but upon looking back at labs done earlier in the year they were close to 500K then. Will have her platelets followed as an outpt. Home Meds Reported Medications Ferrous Sulfate* (Ferrous Sulfate*) 325 Mg Tabec, 325 MG PO DAILY, TAB 01/02/19 Vit #76/Iron,Carb/FA (Pnv 29-1 Tablet) 1 Each Tablet, 1 EACH PO, TAB 01/02/19 Vit No.130/Iron/FA ( Tablet) 1 Each Tablet, 1 EACH PO 12/31/18 Follow-up Plan Call Dr Velasquez for a follow-up appt in one week to assess how long she should take her BP medications and to recheck her platelet count. Primary Care Provider Not On Staff Doctor Time spent on discharge: < 30 minutes SACHIN PRASAD MD January 15, 2019 13:07
--- NOTE | 2019-01-15 13:08 | PD.PPDC ---
DENTAL PROSTHETIST Discharge Instruction Condition [id number] Patient Condition: [id number] Good Diet [id number] Diet: [id number] Resume Regular Diet Special Diet: Drink 8 glasses of water q day! Activity/Restrictions [id number] Activity: [id number] Normal Activity May Shower [id number] Restrictions: [id number] No Sexual Activity Nothing in the Vagina No [place] No Tampons, douche Follow-up Follow-up with Physician: 1, Week/Weeks Return to clinic for [id number] OB Instructions: [id number] Blurried Vision Headache SACHIN PRASAD MD January 15, 2019 13:08
[2019-01-15] MEDS ORDERED: LABE200T25 PO (13:09)
--- NOTE | 2019-01-16 16:27 | DELSUM ---
Delivery Summary A-C Datetime Report Generated by N: 01/16/2019 16:27 DELIVERY PERSONNEL Marketing Campaign Analyst: Soleimaelaine, Thao MATERNAL INFORMATION Delivery Anesthesia: Epidural Medications in Delivery: 30 units Pitocin, metheragine 0.2mg Delivery QBL (ml): 300 Placenta Cultured: No Maternal Complications: None LABOR SUMMARY EDC: 01/05/2019 00:00 No. Babies in Womb: 1 Attempted: No Labor Anesthesia: Epidural LABOR INFORMATION Reason for Induction: Not Applicable Onset of Labor: 01/02/2019 17:00 Complete Dilatation: 01/04/2019 08:20 Cervical Ripening Agents: Cytotec @ Oxytocin: Augmentation (Annotations: Data stored by [facility] on behalf of user) Group B Beta Strep: Negative Antibiotics # of Doses: 0 Steroids Given: None Reason Steroids Not Administered: Not Applicable MEMBRANES Membranes Rupture Method: Spontaneous Rupture of Membranes: 01/04/2019 17:15 Length of Rupture (hr): 15.10 Amniotic Fluid Color: Clear Amniotic Fluid Amount: Moderate Amniotic Fluid Odor: None STAGES OF LABOR Stage 1 hr: 39 Stage 1 min: 20 Stage 2 hr: 0 Stage 2 min: 17 Stage 3 hr: 0 Stage 3 min: 4 Total Time in Labor hr: 39 Total Time in Labor min: 41 VAGINAL DELIVERY Episiotomy: Right Mediolateral Initial Vag Sponge Count: 10 Final Vag Sponge Count: 10 Initial Vag Sharps Count: 4 Final Vag Sharps Count: 4 Sponge Count Correct: Yes Sharps Count Correct: Yes BABY A INFORMATION Infant Delivery Date/Time: 01/04/2019 08:37 Method of Delivery: Vaginal Born in Route : No : N/A Forceps: N/A Vacuum Extraction: N/A Shoulder Dystocia : N/A SHOULDER DYSTOCIA BABY A Infant Delivery Date/Time: 01/04/2019 08:37 PRESENTATION/POSITION BABY A Presentation: Cephalic Cephalic Presentation: Vertex Vertex Position: Left Occipital Posterior Breech Presentation: N/A PLACENTA INFORMATION BABY A Placenta Delivery Time : 01/04/2019 08:41 Placenta Method of Delivery: Spontaneous Placenta Status: Delivered SCORES BABY A Heart Rate 1 min: >100 bpm Resp Effort 1 min: Good Cry Reflex Irritability 1 min: Cough/Sneeze/Pulls Away Muscle Tone 1 min: Active Motion Color 1 min: Blue/Pale Resuscitation Effort 1 min: Tactile Stimulation; Oxygen; PPV/NCPAP SCORE 1 MIN: 8 Heart Rate 5 min: >100 bpm Resp Effort 5 min: Good Cry Reflex Irritability 5 min: Cough/Sneeze/Pulls Away Muscle Tone 5 min: Active Motion Color 5 min: Body [place], Extremit Blue Resuscitation Effort 5 min: Tactile Stimulation SCORE 5 MIN: 9 INFANT INFORMATION BABY A Gestational Age at Delivery: 39.0 Gestational Status: Full Term- 39- 40.6 Weeks Outcome : Liveborn Condition : Stable Infant Sex: Female IDENTIFICATION/MEDS BABY A ID Band Number: [id number] ID Band Location: Right Leg; Left Arm Sensor Applied: Yes Sensor Number: [id number] Sensor Location : Cord Clamp Vitamin K Given : Not Given Erythromycin Given: Not Given WEIGHT/LENGTH BABY A Infant Birthweight (gm): 3105 Weight (lb): 6 Weight (oz): 14 Length (in): 18.50 Infant Length (cm): 46.99 CORD INFORMATION BABY A No. Cord Vessels: 3 Nuchal Cord : Around Neck x1, Tight Cord Blood Taken: Yes Suction: Mouth; Nose ASSESSMENT BABY A Countersinker/ALS Called : No Transferred To: Remains with Mother
== END 2019-01-15 15:35 | disposition home or self-care (01) | DRG 776 ==
LOC: FTE 18:41 → L-D 01-12 00:48 → UNDOADMIN 01-12 00:48 → L-D 01-12 03:04 → PP1 01-13 02:46
PROVIDERS: ADMIT Obstetrics & Gynecology Obstetrics; ATTEND Obstetrics & Gynecology
DX: O14.95 Unspecified pre-eclampsia, complicating the puerperium (principal); D47.3 Essential (hemorrhagic) thrombocythemia
CPT/HCPCS: 36415; 80053; 80069; 80076; 81001; 83615; 83690; 83735; 84560; 85025; 85384; 85610; 85730; 93005; 96374; 96375; G0463; J2405; J3475; J7120